=== PATIENT | male | born 1985 | race Caucasian/White ===

== ENCOUNTER 2017-12-27 14:20 | Emergency (ER) | payer OTHER ==
[~2017-12-27] VITALS: Ht 175.3 cm; Wt 90.7 kg
--- NOTE | 2017-12-27 14:26 | NUR ---
Pt triaged and placed in hallway 1, there are no ER beds available at this time.
[2017-12-27 15:29] LABS: *BILIRUBIN,URIN NEGATIVE (NEGATIVE); *BLOOD, URINE NEGATIVE (NEGATIVE); *CLARITY,URINE CLEAR (CLEAR); *COLOR,URINE YELLOW (YELLOW); *KETONES,URINE NEGATIVE (NEGATIVE); *PROTEIN,URINE NEGATIVE (NEGATIVE); *UROBILINOGEN,URINE 0.2 E.U./dl (NORMAL); LEUKOCYTE ESTERASE ,URINE NEGATIVE (NEGATIVE); NITRITE, URINE NEGATIVE (NEGATIVE); UGLUCOSE NEGATIVE (NEGATIVE)
[2017-12-27 15:42] LABS: WBC,URINE NONE SEEN /HPF (0-3)
[2017-12-27 15:43] LABS: MUCUS,URINE FEW /LPF (0-FEW)
[2017-12-27 15:49] LABS: *AMPHETAMINE, URINE POSITIVE (NEGATIVE); *BARBITURATE, URINE NEGATIVE (NEGATIVE); *CANNABINOID, URINE NEGATIVE (NEGATIVE); *COCCAINE, URINE NEGATIVE (NEGATIVE); *OPIATE, URINE NEGATIVE (NEGATIVE); *PHENCYCLIDINE SCREEN,URINE NEGATIVE (NEGATIVE)
[2017-12-27] MEDS ORDERED: LORAZEPAM 1 MG TABLET ONE (16:39)
[2017-12-27] MEDS ORDERED: LORAZEPAM 0.5 MG TABLET PO ONE (16:41)
[2017-12-27 16:45] LABS: BASOPHILS % (AUTO) 0.5 % (0.0-2.0); EOSINOPHILS # (AUTO) 0.4 K/uL (0.0-0.7); EOSINOPHILS % (AUTO) 3.7 % (0.0-7.0); HEMATOCRIT 49.3 % (36.7-47.1); HEMOGLOBIN 16.8 g/dL (12.5-16.3); LYMPHOCYTES # (AUTO) 3.3 K/uL (20.0-40.0); MEAN CORPUSCULAR HEMOGLOBIN 31.3 uug (23.8-33.4); MEAN CORPUSCULAR HGB CONC 34 g/dL (32.5-36.3); MONOCYTES # (AUTO) 0.8 K/uL (2.0-10.0); MONOCYTES % (AUTO) 7.8 % (0.0-11.0); NEUTROPHILS # (AUTO) 5.3 K/uL (1.8-8.9); PLATELET COUNT (AUTO) 216 K/uL (152-348); RED BLOOD CELL COUNT(AUTO) 5.36 MIL/uL (4.06-5.63); WHITE BLOOD COUNT (AUTO) 9.7 K/uL (3.6-10.2)
[2017-12-27 17:06] LABS: CARBON DIOXIDE 31 mmol/L (21-32); CHLORIDE 103 mmol/L (98-107); CREATININE 1.1 mg/dL (0.6-1.3); GLUCOSE 90 mg/dL (74-106); POTASSIUM 4.1 mmol/L (3.5-5.1); UREA NITROGEN, BLOOD 12 mg/dL (7-18)
[2017-12-27 17:12] LABS: ALANINE AMINOTRANSFERASE 50 U/L (16-63); ALKALINE PHOSPHATASE 91 U/L (50-136); ASPARTATE AMINOTRANSFERASE 26 U/L (15-37); BILIRUBIN,TOTAL 0.4 mg/dL (0.2-1.0)
--- NOTE | 2017-12-27 17:19 | NUR ---
MOTHER -JERRY called #[phone] in regards to pt's condition.
[2017-12-27 17:20] LABS: ETHANOL < 3 MG/DL (0-0)
--- NOTE | 2017-12-27 17:20 | NUR ---
Pt moved to room 2b.
[2017-12-27] MEDS ORDERED: LITHIUM (17:32)
[2017-12-27] MEDS ORDERED: CLON1TAB PO (17:32)
[2017-12-27] MEDS ORDERED: DIVA500T2 PO (17:32)
[2017-12-27] MEDS ORDERED: FLUO20CA36 PO (17:32)
[2017-12-27] MEDS ORDERED: QUET100T PO (17:32)
--- NOTE | 2017-12-27 18:17 | NUR ---
Patient is resting comfortably in bed with eyes closed, after having dinner. Awaiting for Alcides Henderson from PET to evaluate the Pt.
--- NOTE | 2017-12-27 18:33 | NUR ---
Alcides Henderson from PET at the bedside for Psych eval.
--- NOTE | 2017-12-27 19:15 | NUR ---
REPORT TAKEN FROM DAY SHIFT RN. ASSUMING PT CARE AT THIS TIME.
--- NOTE | 2017-12-27 19:57 | NUR ---
Patient discharged to home in stable conditon. Written and verbal after care instructions given. Patient verbalizes understanding of instructions. Pt ambulated from ER w/ steady gait. Pt took all personal belongings.
[2017-12-27 19:59] VITALS: BP 116/84
== END 2017-12-27 20:00 | disposition home or self-care (01) ==
LOC: ER 14:20
DX: R45.4 Irritability and anger (principal); F20.9 Schizophrenia, unspecified; F31.9 Bipolar disorder, unspecified; F41.9 Anxiety disorder, unspecified; Z04.6 Encounter for general psychiatric examination, requested by authority; Z79.899 Other long term (current) drug therapy
CPT/HCPCS: 36415; 70030-TC; 80307; 85025; A4663; G0480